=== PATIENT | male | born 1945 | race Caucasian/White ===

== ENCOUNTER 2022-12-22 15:18 | Emergency (ER) | payer OTHER ==
[~2022-12-22] VITALS: Ht 167.6 cm; Wt 70.3 kg
[~2022-12-22 15:18] MED LIST: ASPIRIN EC81 MG PO; CO Q-10100 MG PO; FISH OIL300 MG PO; LUTEIN20 MG PO; MELATONIN3 M2 PO; METOPROLOL SUCC25 MG PO; PROSVENT PO
[2022-12-22] MEDS ORDERED: METFORMIN HCL500 M1 PO (15:34)
[2022-12-22] MEDS ORDERED: TAMSULOSIN HCL0.4 MG PO (15:34)
== END 2022-12-22 17:35 | disposition home or self-care (01) ==
LOC: ED 15:18
DX: K40.90 Unilateral inguinal hernia, without obstruction or gangrene, not specified as recurrent (principal); K42.9 Umbilical hernia without obstruction or gangrene; E11.9 Type 2 diabetes mellitus without complications; Z88.5 Allergy status to narcotic agent; Z79.899 Other long term (current) drug therapy; Z79.84 Long term (current) use of oral hypoglycemic drugs; Z79.82 Long term (current) use of aspirin
CPT/HCPCS: 36415; 74177; 80053; 81003; 83690; 85025; 99284-25; Q9967

== ENCOUNTER 2023-09-21 05:55 | Day surgery (SDC) | payer MEDICARE ==
[2023-09-14 11:34] VITALS: BP 133/69
[~2023-09-21] VITALS: Ht 167.6 cm; Wt 71.8 kg
[~2023-09-21 05:55] MED LIST changes: +CALCIUM + VIT1 EACH PO; +CHILD'S OMEGA-1 EACH PO; +FISH OIL 1,0001 EAC7 PO; -FISH OIL300 MG PO; +HYDROCODON-ACE1 EAC8 PO; +METFORMIN HCL500 M1 PO; +POTASSIUM99 M1 PO; +SLOWMAG85 MG PO; +TAMSULOSIN HCL0.4 MG PO; +TURMERIC500 M3 PO; +ZINC50 MG PO
[2023-09-21 06:14] VITALS: BP 143/70
[2023-09-21 08:26] VITALS: BP 159/81
--- NOTE | 2023-09-21 08:59 | NUR ---
09/21/23 0859 Jerri Pate 0803 PT ARRIVED IN PACU SLEEPY. ABD SOFT AND PASSING FLATUS. 0815 PT AWAKENS, THEN FALLS BACK TO SLEEP. 0830 SITTING UP AT BEDSIDE. AMBULATED TO BATHROOM. VOIDED AND GETTING DRESSED WITH STAND BY ASSIST. 0845 DC INSTRUCTIONS GIVEN. ALL QUESTIONS ANSWERED. 0850 LEFT VIA W/C.
--- NOTE | 2023-09-21 11:08 | OR ---
[facility] [address], [place] [address] Signed DATE OF OPERATION: 09/21/2023 SURGEON: Trice Romo MD PREOPERATIVE DIAGNOSIS: Personal history of colonic polyps in 2009 at age 64. POSTOPERATIVE DIAGNOSES: 1. 6 mm sessile polyp, distal right colon (snare, hot biopsy, clip). 2. 4 mm polyp at 65 cm in the left colon. 3. Right less than left moderate diverticulosis. 4. Minimal internal hemorrhoids. PROCEDURE: Colonoscopy with snare polypectomy, hot biopsy and application of clip. ESTIMATED BLOOD LOSS: Minimal. INDICATIONS: Mustapha is a 78-year-old gentleman, asked to see me for followup colonoscopy. I helped him with a colonoscopy in 2009 at the age of 64. This was his initial screening colonoscopy. He had two small 4 mm tubular adenomatous polyps removed. He had done well with Versed and fentanyl at that time. We had asked him to come back in 5 years. He did return in 2014 at the age of 69 in the office. However, his had some bleeding behind the retina and he canceled his colonoscopy. He never did follow up after that. He said his had been through quite a few medical issues. He finally came back to me a few weeks ago and we repaired his periumbilical incisional hernia and his right inguinal hernia both without mesh. He has been watching TV and said that he was not interested in the mesh. He also made himself quite concerned over the Versed and fentanyl from watching TV. He said he would like to have monitored anesthesia care with propofol infusion. He told me currently he has no lower GI complaints. He said he has no family history of colon cancer or polyps. In the office, I gave him a pamphlet on colonoscopy. We reviewed the nature of the test. There is risk including, but not limited to gas bloating, crampy abdominal pain, bleeding, perforation requiring surgery, and missed diagnosis. We also reviewed the written instructions for the bowel prep line by line. We had him hold his aspirin before he came today. We had gone over this issue of monitored anesthesia care with propofol in some detail. He is quite frail now and he does have diabetes along with some angina. In that regard, it was probably stone to go ahead and use monitored anesthesia care with propofol. He did have some preoperative Electronically Signed By: TRICE ROMO MD 09/21/23 1108 PATIENT NAME: MUSTAPHA VACA OPERATIVE REPORT DATE OF : 49 REPORT #: [id number] PHYSICIAN: TRICE ROMO MD PCP: MIKE SALINAS DO REPORT IS CONFIDENTIAL AND NOT TO BE RELEASED WITHOUT AUTHORIZATION [facility] [address], [place] [address] Signed blood work and an EKG. He had expressed understanding and wished to proceed. DESCRIPTION OF PROCEDURE: Mustapha was taken into our endoscopy suite and placed in the left lateral decubitus position. He was given monitored anesthesia care with propofol infusion per our nurse dormitory maid. A digital rectal exam was performed. He had no external hemorrhoids. He had good sphincter tone. Of course, his prostate gland is moderately enlarged and moderately indurated. The adult colonoscope was introduced and advanced all around into the cecum under direct visualization of the camera without difficulty. He had a few areas of liquid stool, but they were easily suctioned out. We could easily see the appendiceal orifice and his ileocecal valve. On the way back, we saw a 6 mm sessile polyp in the distal right colon. We removed it with combination of the snare and the hot biopsy forceps. We went ahead and placed a clip due to a little bit of bleeding. We know he takes aspirin as well and then just distal to that were a few moderate-sized diverticula in the right colon. He also had some diverticula in the left and sigmoid colon. They were moderate in size, few in number and scattered about. We did see just a tiny polypoid lesion at around 65 cm in the left colon. It was easily removed and destroyed completely with hot biopsy forceps. Once down in the rectum, the scope had been retroflexed and he does have minimal internal hemorrhoid columns. After this, the gas was suctioned out and the colonoscope removed. Mustapha tolerated the procedure quite well. RECOMMENDATIONS: I will see Mustapha back in my office in 7 to 14 days to review his results. Trice Romo MD ALB/MODL /[id number] cc: DO Trice Rendon MD Electronically Signed By: TRICE ROMO MD 09/21/23 1108 PATIENT NAME: MUSTAPHA VACA OPERATIVE REPORT DATE OF : 49 REPORT #: [id number] PHYSICIAN: TRICE ROMO MD PCP: MIKE SALINAS DO REPORT IS CONFIDENTIAL AND NOT TO BE RELEASED WITHOUT AUTHORIZATION [address], [place] [address] Signed Copies: TRICE ROMO MD ~ Electronically Signed By: TRICE ROMO MD 09/21/23 1108 PATIENT NAME: NOLADAT OPERATIVE REPORT DATE OF : 49 REPORT #: [id number] PHYSICIAN: TRICE ROMO MD PCP: MIKE SALINAS DO REPORT IS CONFIDENTIAL AND NOT TO BE RELEASED WITHOUT AUTHORIZATION
--- NOTE | 2023-09-27 14:40 | PATH ---
[facility] [address] [place], [place] [address] Signed SPECIMEN(S): A DISTAL ASCENDING/RIGHT COLON POLYP SPECIMEN(S): B DESCENDING/LEFT COLON POLYP AT 65 CM SPECIMEN SOURCE: A. DISTAL ASCENDING/RIGHT COLON POLYP B. DESCENDING/LEFT COLON POLYP AT 65 CM CLINICAL HISTORY: History of colon polyps FINAL PATHOLOGIC DIAGNOSIS: A. Colon, distal ascending/right, polypectomy: - Multiple fragments of tubular adenoma. B. Colon, descending/left, polyp at 65 cm, biopsy: - Hyperplastic polyp. COMMENT: There is no evidence of high grade dysplasia or malignancy. There is no evidence of dysplasia or malignancy. [facility] MICROSCOPIC EXAMINATION: Histologic sections of all submitted blocks are examined by light microscopy. These findings, together with the gross examination, support the pathologic diagnosis. GROSS DESCRIPTION: A. The specimen, labeled and designated "Landry, distal ascending/right colon polyps," is received in formalin and consists of two carias soft tissue fragments, ranging from 0.3-0.4 cm. Entirely submitted in (A1). B. The specimen, labeled and designated "Landry, descending/left colon polyp at 65 cm," is received in formalin and consists of one carias soft tissue fragment, 0.3 cm. Entirely submitted in (B1). VB (under the direct supervision of a pathologist) The Gross Description was prepared using a voice recognition system. The report was reviewed for accuracy; however, sound-alike word errors, addition and/or deletions may occur. If there is any question about this report, please contact Client Services. ADDITIONAL NOTES: PATIENT NAME: MUSTAPHA VACA PATHOLOGY DATE OF : 49 REPORT #: [id number] PHYSICIAN: DIANNE NUNEZ PCP: MIKE SALINAS DO REPORT IS CONFIDENTIAL AND NOT TO BE RELEASED WITHOUT AUTHORIZATION [facility] [address] [place], [place] [address] Signed Immunohistochemical and/or in situ hybridization studies if performed in this case included appropriate positive controls that reacted as expected. This test was developed and its performance characteristics determined by [facility]. It has not been cleared or approved by the U.S. Food and Drug Administration. The FDA has determined that such clearance or approval is not necessary. This test is used for clinical purposes. It should not be regarded as investigational or for research. [facility] is certified under the Clinical Laboratory Improvement Amendments of 1988 (CLIA) as qualified to perform high complexity clinical laboratory testing. PERFORMING LABORATORY: Technical component was performed by [facility], [address] [place] [id number] (CLIA# [id number]). Professional interpretation was performed by [facility] - [facility], [address] [address] (CLIA# [id number]). Diagnostician: Yo Suárez MD Pathologist Electronically Signed 09/27/2023 Copies: ~ PATIENT NAME: MUSTAPHA VACA PATHOLOGY DATE OF : 49 REPORT #: [id number] PHYSICIAN: DIANNE NUNEZ PCP: MIKE SALINAS DO REPORT IS CONFIDENTIAL AND NOT TO BE RELEASED WITHOUT AUTHORIZATION
== END 2023-09-21 08:52 | disposition home or self-care (01) ==
LOC: DS 05:55 → OPS 05:55 → DS 07:30 → OPS 08:52 → DS 09:00 → OPS 09:00
PROVIDERS: ATTEND Colon & Rectal Surgery
PROC: 0DBF8ZZ Excision of Right Large Intestine, Via Natural or Artificial Opening Endoscopic (ICD-10-PCS; 2023-09-21)
PROC: 0DBG8ZZ Excision of Left Large Intestine, Via Natural or Artificial Opening Endoscopic (ICD-10-PCS; principal; 2023-09-21 07:30)
DX: Z12.11 Encounter for screening for malignant neoplasm of colon (principal); D12.2 Benign neoplasm of ascending colon; K63.5 Polyp of colon; K64.8 Other hemorrhoids; K57.30 Diverticulosis of large intestine without perforation or abscess without bleeding; E11.9 Type 2 diabetes mellitus without complications; N40.0 Benign prostatic hyperplasia without lower urinary tract symptoms; I10 Essential (primary) hypertension
CPT/HCPCS: 00811; 88305; J2001; J2704; J7121